=== PATIENT | male | born 1980 | race Caucasian/White ===

== ENCOUNTER 2016-11-20 08:58 | Observation (INO) | payer OTHER ==
[~2016-11-20] VITALS: Ht 198.1 cm; Wt 215.0 kg
[2016-11-20 10:02] LABS: BASOPHIL COUNT 0.1 K/uL (0-0.1); EOSINOPHIL (%) 5.9 % (0-5); EOSINOPHIL COUNT 0.6 K/uL (0-0.3); HEMATOCRIT 44.8 % (38.0-50.0); IMMATURE GRANULOCYTE (%) 0.6 % (0.0-0.7); IMMATURE GRANULOCYTE COUNT 0.1 K/uL; INSTRUMENT ABS NEUTROPHIL CT 7.2 K/uL; LYMPHOCYTE COUNT 1.4 K/uL (1.0-2.8); MCH 25.9 PG (29.0-34.0); MCHC 31.5 G/DL (30.0-36.0); MCV 82.2 FL (86-99); MEAN PLAT.VOLUME 12.5 uM^3 (9.0-12.4); MONOCYTE (%) 6.3 % (3-12); MONOCYTE COUNT 0.6 K/uL (0-0.8); NEUTROPHIL (%) 72.2 % (45-76); NEUTROPHIL COUNT 7.2 K/uL (1.8-6.4); PLATELET COUNT 194 K/uL (156-360); RBC DIS.WIDTH-SD 41.7 % (39-53); RED BLOOD COUNT 5.45 M/uL (4.00-5.50)
[2016-11-20 10:14] LABS: D-DIMER ELISA 0.29 mg/L FEU (< 0.57); PROTHROMBIN TIME 10.3 (9.2-11.2); PTT 28.2 (25-32)
[2016-11-20 10:23] LABS: TROP-I INTERPRETATION NEGATIVE; TROPONIN-I 0.06 ng/mL (0.0-0.30)
[2016-11-20 10:38] LABS: ANION GAP 9 MEQ/L (2-14); CHLORIDE 102 MEQ/L (99-109); POTASSIUM 3.5 MEQ/L (3.7-5.4); SAMPLE HEMOLYSIS CHECK 0; SAMPLE ICTERIC CHECK 0; SAMPLE LIPEMIA CHECK 0; SODIUM 137 MEQ/L (136-147)
[2016-11-20 10:43] LABS: GFR ESTIMATE (CALCULATED) > 59 mL/min/; GLUCOSE 161 mg/dL (70-99); UREA NITROGEN (BUN) 13 mg/dL (9-23)
[2016-11-20] MEDS ORDERED: NORVASC10 MG PO (11:19)
[2016-11-20] MEDS ORDERED: COREG25 M1 PO (11:20)
[2016-11-20] MEDS ORDERED: PROAIR HFA8.5 GM IH (11:20)
[2016-11-20] MEDS ORDERED: HYDROCHLOROTHIA25 MG PO (11:20)
[2016-11-20 13:23] VITALS: BP 183/108
[2016-11-20 15:12] LABS: METH RESISTANT S AUREUS PCR NEGATIVE (NEGATIVE)
[2016-11-20 15:14] VITALS: BP 182/103
[2016-11-20 15:22] LABS: PROBE CHECK PASS; SPECIMEN PROCESSING CONTROL PASS
[2016-11-20 17:43] VITALS: BP 192/108
[2016-11-20 18:17] LABS: TROP-I INTERPRETATION NEGATIVE; TROPONIN-I 0.06 ng/mL (0.0-0.30)
[2016-11-20 20:11] VITALS: BP 188/97
[2016-11-20 20:37] VITALS: BP 183/98
[2016-11-20 22:55] VITALS: BP 179/112
[2016-11-21 01:56] VITALS: BP 185/96
[2016-11-21 06:40] VITALS: BP 148/87
[2016-11-21 09:46] LABS: CHLORIDE 103 mEq/L (99-109); POTASSIUM 4.1 mEq/L (3.7-5.4); SODIUM 138 mEq/L (136-147)
[2016-11-21 09:47] LABS: MAGNESIUM 2.1 mg/dL (1.3-2.7)
[2016-11-21 09:48] LABS: GLUCOSE 180 mg/dL (70-99)
[2016-11-21 09:50] LABS: ANION GAP 11 MEQ/L (2-14)
[2016-11-21 09:52] LABS: GFR ESTIMATE (CALCULATED) > 59 mL/min/
[2016-11-21 09:53] LABS: UREA NITROGEN (BUN) 15 mg/dL (9-23)
[2016-11-21 09:56] LABS: TROP-I INTERPRETATION NEGATIVE; TROPONIN-I 0.04 ng/mL (0.0-0.30)
[2016-11-21 12:26] VITALS: BP 164/80
[2016-11-21 15:58] VITALS: BP 173/87
[2016-11-21 20:14] VITALS: BP 165/85
[2016-11-22 00:33] VITALS: BP 160/85
[2016-11-22 05:08] VITALS: BP 128/88
[2016-11-22 07:44] LABS: ANION GAP 10 MEQ/L (2-14); CHLORIDE 100 MEQ/L (99-109); GFR ESTIMATE (CALCULATED) > 59 mL/min/; GLUCOSE 139 mg/dL (70-99); POTASSIUM 3.6 MEQ/L (3.7-5.4); SAMPLE HEMOLYSIS CHECK 0; SAMPLE ICTERIC CHECK 0; SAMPLE LIPEMIA CHECK 0; SODIUM 139 MEQ/L (136-147); UREA NITROGEN (BUN) 19 mg/dL (9-23)
[2016-11-22 09:13] VITALS: BP 179/92
[2016-11-22 11:49] VITALS: BP 139/72
[2016-11-22] MEDS ORDERED: LISINOPRIL40 MG PO (11:58)
[2016-11-22] MEDS ORDERED: ASPIR-LOW81 MG PO (11:58)
[2016-11-22] MEDS ORDERED: SPIRONOLACTONE25 MG PO (11:58)
[2016-11-22] MEDS ORDERED: ATORVASTATIN CA80 MG PO (11:58)
== END 2016-11-22 12:50 | disposition home or self-care (01) ==
LOC: EME 08:58 → 5WEST 11:04 → EDOF 11:04 → 5WEST 12:28
PROVIDERS: Emergency Medicine; Hospitalist; Student in an Organized Health Care Education/Training Program
DX: R07.89 Other chest pain (principal); R55 Syncope and collapse; I47.2 Ventricular tachycardia; R06.02 Shortness of breath; I25.2 Old myocardial infarction; I11.0 Hypertensive heart disease with heart failure; I50.9 Heart failure, unspecified; G47.33 Obstructive sleep apnea (adult) (pediatric); E78.5 Hyperlipidemia, unspecified; F12.90 Cannabis use, unspecified, uncomplicated; E66.01 Morbid (severe) obesity due to excess calories; Z91.19 Patient's noncompliance with other medical treatment and regimen; F41.9 Anxiety disorder, unspecified; Z68.43 Body mass index [BMI] 50.0-59.9, adult; I49.5 Sick sinus syndrome; G43.909 Migraine, unspecified, not intractable, without status migrainosus
CPT/HCPCS: 71020; 80048; 80061; 83036; 83735; 83880; 84484; 85025; 85379; 85610; 85730; 87641; 93005; 93306; 99281; 99285; G0378; J0360; J1200; J1885; J1940; J2765; J2930; J7030

== ENCOUNTER 2017-01-06 15:16 | Observation (INO) | payer SELFPAY ==
[~2017-01-06] VITALS: Ht 198.1 cm; Wt 212.1 kg
[~2017-01-06 15:16] MED LIST: ASPIR-LOW81 MG PO; ATORVASTATIN CA80 MG PO; COREG25 M1 PO; HYDROCHLOROTHIA25 MG PO; LISINOPRIL40 MG PO; NORVASC10 MG PO; PROAIR HFA8.5 GM IH; SPIRONOLACTONE25 MG PO
[2017-01-06 15:53] LABS: HEMATOCRIT 44.6 % (38.0-50.0); MCH 25.7 PG (29.0-34.0); MCHC 32.1 G/DL (30.0-36.0); MCV 80.2 FL (86-99); MEAN PLAT.VOLUME 12.4 uM^3 (9.0-12.4); PLATELET COUNT 200 K/uL (156-360); RBC DIS.WIDTH-CV 13.6 % (11.8-14.6); RBC DIS.WIDTH-SD 39.5 % (39-53); RED BLOOD COUNT 5.56 M/uL (4.00-5.50); WHITE BLOOD COUNT 10.2 K/uL (4.1-10.2)
[2017-01-06 16:02] LABS: CHLORIDE 101 mEq/L (99-109); POTASSIUM 3.8 mEq/L (3.7-5.4); SODIUM 139 mEq/L (136-147)
[2017-01-06 16:04] LABS: GLUCOSE 111 mg/dL (70-99)
[2017-01-06 16:05] LABS: ANION GAP 9 MEQ/L (2-14)
[2017-01-06 16:08] LABS: GFR ESTIMATE (CALCULATED) > 59 mL/min/; UREA NITROGEN (BUN) 14 mg/dL (9-23)
[2017-01-06 16:14] LABS: TROP-I INTERPRETATION NEGATIVE; TROPONIN-I 0.07 ng/mL (0.0-0.30)
[2017-01-06 16:56] LABS: D-DIMER ELISA 0.42 mg/L FEU (< 0.57)
[2017-01-06 21:36] VITALS: BP 209/127
[2017-01-06 23:55] LABS: METH RESISTANT S AUREUS PCR NEGATIVE (NEGATIVE)
[2017-01-06 23:56] LABS: PROBE CHECK PASS; SPECIMEN PROCESSING CONTROL PASS
[2017-01-07] VITALS: BP 201/109
[2017-01-07 00:03] LABS: TROP-I INTERPRETATION NEGATIVE; TROPONIN-I 0.09 ng/mL (0.0-0.30)
[2017-01-07 04:15] VITALS: BP 171/99
[2017-01-07 07:30] VITALS: BP 176/105
[2017-01-07 09:55] LABS: TROP-I INTERPRETATION NEGATIVE; TROPONIN-I 0.06 ng/mL (0.0-0.30)
[2017-01-07 12:04] VITALS: BP 139/92
[2017-01-07] MEDS ORDERED: NORVASC10 MG PO (12:09)
[2017-01-07] MEDS ORDERED: PRAVACHOL40 MG PO (12:09)
[2017-01-07] MEDS ORDERED: COREG25 M1 PO (12:09)
[2017-01-07] MEDS ORDERED: ASPIR-LOW81 MG PO (12:09)
[2017-01-07] MEDS ORDERED: HYDROCHLOROTHIA25 MG PO (12:09)
[2017-01-07] MEDS ORDERED: LISINOPRIL10 MG PO (12:09)
== END 2017-01-07 13:54 | disposition left against medical advice (07) ==
LOC: EME 15:16 → EDOF 19:39 → 5WEST 21:26
PROVIDERS: Emergency Medicine; Hospitalist; Nurse Practitioner Family
DX: R07.9 Chest pain, unspecified (principal); I10 Essential (primary) hypertension; E66.01 Morbid (severe) obesity due to excess calories; M79.89 Other specified soft tissue disorders; Z82.49 Family history of ischemic heart disease and other diseases of the circulatory system; T46.4X6A Underdosing of angiotensin-converting-enzyme inhibitors, initial encounter; Z91.128 Patient's intentional underdosing of medication regimen for other reason
CPT/HCPCS: 71020; 80048; 84484; 85027; 85379; 87641; 93005; 93970; 99202; 99281; 99285; G0378; J1650; J1940

== ENCOUNTER 2017-02-05 19:40 | Emergency (ER) | payer SELFPAY ==
[~2017-02-05] VITALS: Ht 198.1 cm; Wt 214.9 kg
[~2017-02-05 19:40] MED LIST changes: +LISINOPRIL10 MG PO; +PRAVACHOL40 MG PO
[2017-02-05] MEDS ORDERED: PRAVACHOL40 MG PO (20:18)
[2017-02-05] MEDS ORDERED: HYDROCHLOROTHIA25 MG PO (20:18)
[2017-02-05] MEDS ORDERED: PRINIVIL10 MG PO (20:18)
[2017-02-05] MEDS ORDERED: AMLODIPINE BESY10 MG PO (20:18)
[2017-02-05] MEDS ORDERED: CARVEDILOL25 MG PO (20:20)
[2017-02-05] MEDS ORDERED: LO-DOSE ASPIRIN81 M2 PO (20:20)
[2017-02-05 20:26] VITALS: BP 160/87
== END 2017-02-05 20:26 | disposition home or self-care (01) ==
LOC: EME 19:40
DX: I10 Essential (primary) hypertension (principal); Z76.0 Encounter for issue of repeat prescription; Z79.82 Long term (current) use of aspirin; Z88.6 Allergy status to analgesic agent
CPT/HCPCS: 99281; 99283